=== PATIENT | male | born 1965 | race Caucasian/White ===

== ENCOUNTER 2018-10-12 14:26 | Emergency (ER) | payer MEDICAID ==
[~2018-10-12] VITALS: Ht 175.3 cm; Wt 74.8 kg
--- NOTE | 2018-10-12 14:32 | NUR ---
PT AMBULATORY TO ER BED 13. PRESENTS W/ L THUMB PAIN AND SWELLING. 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 AWAITING MD ROBBINS.
[2018-10-12] MEDS ORDERED: LIDOCAINE HCL/PF 1% 30 ML VIAL TP ONE (15:00)
[2018-10-12 16:07] VITALS: BP 147/84
--- NOTE | 2018-10-12 16:07 | NUR ---
Patient discharged to home in stable condition. Written and verbal after care instructions given. Patient verbalizes understanding of instruction.
== END 2018-10-12 16:08 | disposition home or self-care (01) ==
LOC: ER 14:29
DX: L03.012 Cellulitis of left finger (principal)
CPT/HCPCS: 10060; 99283; A4606